=== PATIENT | male | born 1980 | race Caucasian/White ===

== ENCOUNTER 2021-01-03 08:55 | Outpatient (CLI) | payer OTHER ==
[2021-01-03 22:30] LABS: SARS-CoV-2 PCR by NAA Not Detected (NotDetected)
== END 2021-01-03 08:56 | disposition home or self-care (01) ==
LOC: CSHLAB 08:55
PROVIDERS: ATTEND Family Medicine
DX: Z20.822 Contact with and (suspected) exposure to COVID-19 (principal)
CPT/HCPCS: 87635; U0003; U0005

== ENCOUNTER 2021-01-08 07:34 | Outpatient (CLI) | payer OTHER | END 2021-01-08 07:35 | disposition home or self-care (01) | LOC: CSHCP 07:34 | PROVIDERS: ATTEND Family Medicine | DX: J45.909 Unspecified asthma, uncomplicated (principal) | CPT/HCPCS: 94010; 94726; 94729; 94760 ==

== ENCOUNTER 2025-10-03 18:28 | Emergency (ER) | payer OTHER ==
[2025-10-03 19:02] LABS: #Basophils 0.04 10x3/uL (0.0-0.2); #Eosinophils 0.12 10x3/uL (0.0-0.5); #Monocytes 0.44 10x3/uL (0.0-1.1); #Neutrophils 3.02 10x3/uL (1.5-8.4); %Basophils 0.7 % (0.0-2.0); %Eosinophils 2.0 % (0.0-6.0); %Lymphocytes 38.6 % (18.0-47.0); %Monocytes 7.4 % (0.0-10.0); %Neutrophils 51.0 % (40.0-75.0); Hematocrit 42.7 % (38.8-50.0); Hemoglobin 14.9 g/dL (13.5-17.5); Mean Corpuscular Hemoglobin 29.6 pg (27.0-33.0); Mean Corpuscular Volume 84.7 fL (81.2-95.1); Platelet Count 239 10x3/uL (150-450); Red Blood Cell (RBC) Count 5.04 10x6/uL (4.32-5.72); White Blood Cell (WBC) Count 5.93 10x3/uL (3.5-10.5)
[2025-10-03 19:16] LABS: ALT (SGPT) 16 U/L (Less than 45); AST (SGOT) 18 U/L (11-34); Albumin 4.6 g/dL (3.1-4.5); Alkaline Phosphatase 71 U/L (40-110); Anion Gap 11 mmol/L (10-20); BUN (Urea Nitrogen) 9 mg/dL (8.9-20.6); Bilirubin, Total 0.5 mg/dL (0.3-1.2); Calc. Creatinine Clearance 0 mL/min (70-130); Calcium 9.1 mg/dL (7.8-10.44); Carbon Dioxide 27 mmol/L (22-29); Chloride 106 mmol/L (98-107); Globulin 2.3 g/dL (2.4-3.5); Glucose 93 mg/dL (70-105); Potassium 4.1 mmol/L (3.5-5.1); Sodium 140 mmol/L (136-145)
[2025-10-03 19:21] LABS: Troponin I 0.010 ng/mL (< 0.028)
== END 2025-10-04 00:11 | disposition short-term general hospital (02) ==
LOC: CSHERS 18:28
DX: R47.1 Dysarthria and anarthria (principal); R20.8 Other disturbances of skin sensation; R42 Dizziness and giddiness; Z75.3 Unavailability and inaccessibility of health-care facilities; Z86.73 Personal history of transient ischemic attack (TIA), and cerebral infarction without residual deficits
CPT/HCPCS: 36415; 70450; 80053; 83880; 84484; 85025; 93005; 94760